=== PATIENT | female | born 1940 | race African-American/Black ===

== ENCOUNTER → 2016-10-06 | Outpatient (CLI) | payer MEDICARE, OTHER ==
[~2016-10-06] MED LIST: COZAAR50 MG PO; DORZOLAMIDE; DYNACIN100 M1 PO; FLEXERIL10 MG PO; MOBIC7.5 MG PO; NASONEX; PLAQUENIL200 MG PO; PRILOSEC20 MG PO
== END | disposition home or self-care (01) ==
LOC: CDC 09:52
DX: R94.31 Abnormal electrocardiogram [ECG] [EKG] (principal); K81.9 Cholecystitis, unspecified
CPT/HCPCS: 93000

== ENCOUNTER 2016-10-20 05:59 | Day surgery (SDC) | payer OTHER ==
[~2016-10-20] VITALS: Ht 154.9 cm; Wt 68.0 kg
[~2016-10-20 05:59] MED LIST changes: +AMLODIPINE BESYL5 MG PO; +AZELASTINE137 MCG/0. BOTH NARES; +BENICAR HCT 401 EAC1 PO; +HYDROXYCHLOROQ200 MG PO; +LATANOPROST2.5 ML BOTH EYES; +LO-DOSE ASPIRIN81 M2 PO; +MINOCYCLINE HC100 MG PO; +OMEPRAZOLE40 M1 PO; +TIMOLOL MALEATE15 M1 BOTH EYES
[2016-10-20 06:45] VITALS: BP 145/66
[2016-10-20 07:53] LABS: ANION GAP 10 MEQ/L (2-14); CHLORIDE 103 MEQ/L (99-109); POTASSIUM 3.7 MEQ/L (3.7-5.4); SAMPLE HEMOLYSIS CHECK 0; SAMPLE ICTERIC CHECK 0; SAMPLE LIPEMIA CHECK 0; SODIUM 139 MEQ/L (136-147)
[2016-10-20 07:59] LABS: GFR ESTIMATE (CALCULATED) 44 mL/min/; GLUCOSE 118 mg/dL (70-99); UREA NITROGEN (BUN) 18 mg/dL (9-23)
[2016-10-20] MEDS ORDERED: NORCO 5/3251 TABLET PO (10:10)
[2016-10-20 10:30] VITALS: BP 171/73
[2016-10-20 11:29] VITALS: BP 116/48
[2016-10-20 13:10] VITALS: BP 124/70
== END 2016-10-20 13:14 | disposition home or self-care (01) ==
LOC: SDC 05:59
PROVIDERS: Anesthesiology
PROC: 0FT44ZZ Resection of Gallbladder, Percutaneous Endoscopic Approach (ICD-10-PCS; principal; 2016-10-20)
DX: K80.10 Calculus of gallbladder with chronic cholecystitis without obstruction (principal); I10 Essential (primary) hypertension; K21.9 Gastro-esophageal reflux disease without esophagitis; M19.90 Unspecified osteoarthritis, unspecified site
CPT/HCPCS: 74300; 80048; 88304; J0330; J2250; J2405; J2710; J2765; J3010; S0020

== ENCOUNTER 2017-11-15 17:35 | Emergency (ER) | payer OTHER ==
[~2017-11-15] VITALS: Ht 154.9 cm; Wt 69.4 kg
[~2017-11-15 17:35] MED LIST changes: +NORCO 5/3251 TABLET PO
[2017-11-15] MEDS ORDERED: VALSARTAN-HCTZ1 EAC2 PO (17:44)
[2017-11-15 19:51] VITALS: BP 169/73
== END 2017-11-15 19:52 | disposition home or self-care (01) ==
LOC: EME 17:35
DX: I10 Essential (primary) hypertension (principal); Z79.82 Long term (current) use of aspirin
CPT/HCPCS: 99281; 99284